=== PATIENT | female | born 1950 | race Hispanic/Latino ===

== ENCOUNTER → 2021-04-19 | Outpatient (CLI) | payer MEDICARE, OTHER ==
[~2021-04-19] MED LIST: LIDOCAINE HCL 1% LOCAL INJ 20 ML VIAL ONE
[2021-04-19 10:58] LABS: HEMOGLOBIN 11.8 g/dL (12.0-16.0)
[2021-04-19 11:11] LABS: INR 0.91; PARTIAL THROMBOPLASTIN TIME 29.2 seconds (23.8-35.5)
[2021-04-20 07:52] LABS: TOTAL PROTEIN,CSF 36.8 mg/dL (15-40)
[2021-04-20 08:04] LABS: APPEARANCE,CSF CLEAR (CLEAR)
[2021-04-20 08:05] LABS: COLOR,CSF COLORLESS (COLORLESS); TUBE NUMBER 3; WHITE BLOOD CELL,CSF 6 cells/uL (0-5)
[2021-04-25 14:09] LABS: IGG/ALB RATIO CSF 0.12 (0.00-0.25)
[2021-04-25 21:36] LABS: MYELIN BASIC PROTEIN, CSF 13.4 ng/mL (0.0-5.6)
== END ==
LOC: DX 10:28 → EDSEX 13:00
PROVIDERS: ATTEND Psychiatry & Neurology Clinical Neurophysiology
DX: G37.9 Demyelinating disease of central nervous system, unspecified (principal)
CPT/HCPCS: 36415; 62328; 77003; 82040; 82784; 82945; 83873; 83916; 84157; 84166; 85014; 85049; 85610; 85730; 86256; 86592; 87070; 87205; 89051; J2001